=== PATIENT | male | born 1945 | race Asian ===

== ENCOUNTER → 2017-04-02 | Outpatient (CLI) | payer OTHER, BC | END | disposition home or self-care (01) | LOC: RD 10:10 | DX: S42.201D Unspecified fracture of upper end of right humerus, subsequent encounter for fracture with routine healing (principal); X58.XXXD Exposure to other specified factors, subsequent encounter ==

== ENCOUNTER 2018-03-21 08:50 | Day surgery (SDC) | payer OTHER, BC ==
[2018-03-15 10:27] LABS: BASOPHIL % 0.5 % (0-2); PLATELET COUNT 167 x10^3mcL (130-400)
[2018-03-15 10:37] LABS: ALBUMIN 3.9 g/dL (3.4-5.0); ALKALINE PHOSPHATASE 121 U/L (46-116); ALT/SGPT 24 U/L (16-63); AST/SGOT 41 U/L (15-37); BILIRUBIN TOTAL 0.7 mg/dL (0.20-1.00); CALCIUM 8.9 mg/dL (8.5-10.1); CHLORIDE SERUM 103 mmol/L (98-107); CHOLESTEROL 118 mg/dL (<200); CREATININE SERUM 1.3 mg/dL (0.7-1.3); GLUCOSE SERUM 211 mg/dL (74-106); LACTIC DEHYDROGENASE (LDH) 267 U/L (100-190); PHOSPHOROUS 3.6 mg/dL (2.5-4.9); POTASSIUM SERUM 4.6 mmol/L (3.5-5.1); SODIUM SERUM 141 mmol/L (136-145); TOTAL PROTEIN, SERUM 7.4 g/dL (6.4-8.2)
[2018-03-15 10:42] LABS: RED CELL DISTRIBUTION WIDTH 15.5 % (11.5-14.5)
[~2018-03-21] VITALS: Ht 177.8 cm; Wt 77.1 kg
[2018-03-21 09:23] VITALS: BP 147/69
[2018-03-21 13:41] VITALS: BP 145/78
== END 2018-03-21 14:00 | disposition home or self-care (01) ==
LOC: DS 08:50 → OR 11:00 → DS 11:00
PROVIDERS: Surgery
PROC: 0YU50JZ Supplement Right Inguinal Region with Synthetic Substitute, Open Approach (ICD-10-PCS; principal; 2018-03-21 11:00)
DX: K40.30 Unilateral inguinal hernia, with obstruction, without gangrene, not specified as recurrent (principal); E11.9 Type 2 diabetes mellitus without complications; I10 Essential (primary) hypertension; I25.10 Atherosclerotic heart disease of native coronary artery without angina pectoris; Z68.24 Body mass index [BMI] 24.0-24.9, adult; Z79.84 Long term (current) use of oral hypoglycemic drugs; Z79.82 Long term (current) use of aspirin; Z95.1 Presence of aortocoronary bypass graft; Z95.5 Presence of coronary angioplasty implant and graft
CPT/HCPCS: 82962; C1781; J0330; J0690; J2175; J2250; J2405; J2704; J3010; J3490; J7030